=== PATIENT | male | born 1975 ===

== ENCOUNTER 2024-09-07 10:48 | Outpatient (CLI) | payer OTHER ==
[~2024-09-07 10:48] MED LIST: FOLIC ACID; INTESTINEX1 CAP
== END 2024-09-07 10:59 | disposition home or self-care (01) ==
LOC: MRI 10:48
DX: M54.50 Low back pain, unspecified (principal); M54.16 Radiculopathy, lumbar region
CPT/HCPCS: 72148